=== PATIENT | female | born 1990 | race Caucasian/White ===

== ENCOUNTER 2017-04-17 20:48 | Emergency (ER) | payer OTHER | END 2017-04-17 21:30 | disposition home or self-care (01) | LOC: ER 20:48 | DX: L50.9 Urticaria, unspecified (principal); F17.200 Nicotine dependence, unspecified, uncomplicated; F31.9 Bipolar disorder, unspecified; Z88.1 Allergy status to other antibiotic agents | CPT/HCPCS: 96372; 99282; J2930 ==